=== PATIENT | female | born 1990 | race American Indian/Alaskan Native ===

== ENCOUNTER 2018-12-06 14:02 | Emergency (ER) | payer SELFPAY ==
[2018-12-06 14:30] VITALS: BP 145/94
--- NOTE | 2018-12-06 14:31 | Emergency Department Report ---
Chief Complaint: Upper Respiratory Infection Stated Complaint: CHEST PAIN/SOB Time Seen by Provider: 12/06/18 14:28 - HPI History of Present Illness: pt presents with a cough that began two days ago has chest discomfort with coughing (+) sob (+) rhinorrhea no fever no sick contacts (+) seasonal allergies, has not taken anything no PMHx no daily basis + smoker + marijuana non drinker MSE screening note: Focused history and physical exam performed. Due to findings the following was ordered: CXR pt signed consent form for radiology ED Disposition for MSE Condition: Stable
--- NOTE | 2018-12-06 15:30 | XRay Report ---
ROUTINE CHEST, TWO VIEWS: HISTORY: Cough. The trachea, heart, mediastinal contour, lung orr and bony thorax are unremarkable. IMPRESSION: Unremarkable chest x-ray.
--- NOTE | 2018-12-06 17:50 | Emergency Department Report ---
Minor Respiratory - HPI Chief Complaint: Upper Respiratory Infection Stated Complaint: CHEST PAIN/SOB Time Seen by Provider: 12/06/18 14:28 Duration: 2 Days Pain Location: Nose, Chest Severity: moderate Minor Respiratory: Yes Rhinorrhea, Yes Able to Tolerate Fluids, Yes Cough, Yes Chest Pain, No Sore Throat, No Ear Pain, No Sick Contacts, No Hemoptysis, No Shortness of Breath, No Fever Other History: This is an 28-year-old -[place] female who presents with cough, congestion, and chest discomfort for 2 days. Patient states she is cu rrently taking DayQuil with minimal improvement of symptoms. She denies recent travel, sick contacts, nausea, vomiting, diarrhea, fever, chills, and myalgia. ED Review of Systems ROS: Stated complaint: CHEST PAIN/SOB Other details as noted in HPI Constitutional: denies: chills, fever ENT: congestion. denies: ear pain, throat pain Respiratory: cough. denies: shortness of breath, wheezing Cardiovascular: denies: chest pain, palpitations Gastrointestinal: denies: abdominal pain, nausea, diarrhea Musculoskeletal: denies: back pain, joint swelling, arthralgia, myalgia Skin: denies: rash, lesions Neurological: denies: headache, weakness, paresthesias Psychiatric: denies: anxiety, depression ED Past Medical Hx - Past Medical History Previous Medical History?: No - Surgical History Additional Surgical History: head - Social History Smoking Status: Current Every Day Smoker Substance Use Type: Marijuana - Medications Home Medications: Home Medications Medication Instructions Recorded Confirmed Last Taken Type Benzonatate [Tessalon Perles] 100 mg PO Q8HR PRN #30 capsule 12/06/18 Unknown Rx Cetirizine HCl [Zyrtec] 10 mg PO DAILY #30 tablet 12/06/18 Unknown Rx Fluticasone [Flonase] 1 spray NS QDAY #1 bottle 12/06/18 Unknown Rx Minor Respiratory Exam - Exam General: Vital signs noted. No distress. Alert and acting appropriately. HEENT: Yes Pharyngeal Erythema (erythematous posterior pharynx, uvula midline), Yes Moist Mucous Membranes, Yes Rhinorrhea (turbinates mildly congested with clear discharge), No Pharyngeal Exudates, No Conjuctival Injection, No Frontal Tenderness, No Maxillary Tenderness Ear: Neither TM Bulge, Neither TM Erythema, Neither EAC Pain, Neither EAC Discharge Neck: Yes Supple, No Adenopathy Lungs: Yes Good Air Exchange, Yes Cough, No Wheezes, No Ronchi, No Stridor, No Labored Respirations, No Retractions, No Use of Accessory Muscles, No Other Abnormal Lung Sounds Heart: Yes Regular, No Murmur Abdomen: Yes Normal Bowel Sounds, No Tenderness, No Peritoneal Signs Skin: No Rash, No Edema Neurologic: Alert and oriented, no deficits. Musculoskeletal: Unremarkable. ED Course Vital Signs 12/06/18 14:28 Temperature 98.5 F Pulse Rate 58 L Respiratory 18 Rate Blood Pressure 145/94 O2 Sat by Pulse 100 Oximetry ED Medical Decision Making - Radiology Data Radiology results: report reviewed ROUTINE CHEST, TWO VIEWS: HISTORY: Cough. The trachea, heart, mediastinal contour, lung orr and bony thorax are unremarkable. IMPRESSION: Unremarkable chest x-ray. - Medical Decision Making Patient examined by me and stable. No distress noted. Vitals normal. Symptoms are susceptible of viral syndrome. She is instructed to take Tylenol or ibuprofen for aches and pains, to drink a lot of liquids to stay home and rest. Start flonase, Tessalon Perles, cetirizine, and ibuprofen. Discharged home stable. Educated on care for viral syndrome. He was given a note to return to work in 3 days. Follow up with Primary Care Provider in 2-3 days. He will return to the emergency room if he does not get better as discussed. Critical care attestation.: If time is entered above; I have spent that time in minutes in the direct care of this critically ill patient, excluding procedure time. ED Disposition Clinical Impression: Cough in adult, Chest discomfort Upper respiratory infection Qualifiers: URI type: unspecified viral URI Qualified Code(s): J06.9 - Acute upper respiratory infection, unspecified Disposition: DC-01 TO HOME OR SELFCARE Is pt being admited?: No Does the pt Need Aspirin: No Condition: Stable Instructions: Upper Respiratory Infection (ED), Cold Symptoms (ED) Additional Instructions: Symptoms are most likely coming from for infection. These infections typically do not give antibiotics. He is to take ibuprofen every 6 hours alternated with Tylenol every 4 hours pain. You may not feel like eating which is to be expected. Try eating a bland diet as tolerated. Wash hands frequently. F/U with Primary Care Provider. Return to ER if fever, SOB, or difficulty breathing after 48 hours of supportive care. Prescriptions: Fluticasone [Flonase] 1 spray NS QDAY #1 bottle Benzonatate [Tessalon Perles] 100 mg PO Q8HR PRN #30 capsule PRN Reason: Cough Cetirizine HCl [Zyrtec] 10 mg PO DAILY #30 tablet Referrals: MEÑO BILLY MD [Primary Care Provider] - 3-5 Days [facility] [Outside] - 3-5 Days [facility] [Outside] - 3-5 Days Forms: Work/School Release Form(ED) Time of Disposition: 18:10
== END 2018-12-06 18:30 | disposition home or self-care (01) ==
LOC: ED 14:02
DX: J06.9 Acute upper respiratory infection, unspecified (principal); F17.200 Nicotine dependence, unspecified, uncomplicated; F12.10 Cannabis abuse, uncomplicated
CPT/HCPCS: 71046

== ENCOUNTER 2018-12-08 21:32 | Emergency (ER) | payer OTHER ==
[2018-12-08 21:40] VITALS: BP 153/98
--- NOTE | 2018-12-08 21:57 | Emergency Department Report ---
Blank Doc - Documentation Documentation: This is a 28-year-old female that presents with URI symptoms. Stated was here 2 days ago and is requesting for prescription antibiotics. Last visit no antibiotics prescribed. Patient stated symptoms of cough is getting worse. This initial assessment/diagnostic orders/clinical plan/treatment(s) is/are subject to change based on patient's health status, clinical progression and re- assessment by fellow clinical providers in the ED. Further treatment and workup at subsequent clinical providers discretion. Patient/guardians urged not to elope from the ED as their condition may be serious if not clinically assessed and managed. Initial orders include: 1- Patient sent to [facility] for further evaluation and treatment 2- CXR
--- NOTE | 2018-12-08 23:22 | XRay Report ---
PROCEDURE: Chest. TECHNIQUE: PA and lateral views. HISTORY: Cough. COMPARISONS: Chest 12/06/2018. Dictation not available. FINDINGS: The heart and mediastinum appear normal. The lungs are clear and well expanded. There are no pleural effusions. The soft tissues and regional skeleton are unremarkable. IMPRESSION: Normal study. This document is electronically signed by Jeremy Maradiaga MD., Dec 08 2018 11:20:38 PM ET
--- NOTE | 2018-12-09 00:02 | Emergency Department Report ---
- General Chief Complaint: Medical Clearance Stated Complaint: CHEST PAIN/SHORTNESS OF BREATH Time Seen by Provider: 12/08/18 21:48 Source: patient Mode of arrival: Ambulatory Limitations: No Limitations - History of Present Illness Initial Comments: Pt is a 28 yo female who presents to the ED with c/o a cough that began 4 days ago. She has associated congestion and rhinorrhea. She denies any fever, sore throat or ear ache. She was evaluated in the ED 2 days ago and left prior to receiving prescriptions. Pt states she has seasonal allergies and has not been taking anything. She denies any allergies to medications. She is a current every day smoker and endorses marijuana use. - Related Data Previous Rx's Medication Instructions Recorded Last Taken Type Benzonatate [Tessalon Perles] 100 mg PO Q8HR PRN #30 capsule 12/09/18 Unknown Rx Cetirizine HCl [Zyrtec] 10 mg PO DAILY #30 tablet 12/09/18 Unknown Rx Fluticasone [Flonase] 1 spray NS QDAY #1 bottle 12/09/18 Unknown Rx Allergies Allergy/AdvReac Type Severity Reaction Status Date / Time No Known Allergies Allergy Unverified 12/06/18 14:04 ED Review of Systems ROS: Stated complaint: CHEST PAIN/SHORTNESS OF BREATH Other details as noted in HPI Comment: All other systems reviewed and negative ED Past Medical Hx - Past Medical History Previous Medical History?: No - Surgical History Past Surgical History?: Yes Additional Surgical History: head - Social History Smoking Status: Current Every Day Smoker Substance Use Type: Marijuana - Medications Home Medications: Home Medications Medication Instructions Recorded Confirmed Last Taken Type Benzonatate [Tessalon Perles] 100 mg PO Q8HR PRN #30 capsule 12/09/18 Unknown Rx Cetirizine HCl [Zyrtec] 10 mg PO DAILY #30 tablet 12/09/18 Unknown Rx Fluticasone [Flonase] 1 spray NS QDAY #1 bottle 12/09/18 Unknown Rx ED Physical Exam - General Limitations: No Limitations General appearance: alert, in no apparent distress - Head Head exam: Present: atraumatic, normocephalic - Eye Eye exam: Present: normal appearance, PERRL - ENT ENT exam: Present: normal orophraynx, other (pale boggy turbinates bilaterally) - Respiratory Respiratory exam: Present: normal lung sounds bilaterally. Absent: respiratory distress, wheezes, rales, rhonchi, stridor, chest wall tenderness, accessory muscle use, decreased breath sounds, prolonged expiratory - Cardiovascular Cardiovascular Exam: Present: regular rate, normal rhythm, normal heart sounds. Absent: systolic murmur, diastolic murmur, rubs, gallop - Neurological Exam Neurological exam: Present: alert, oriented X3 - Psychiatric Psychiatric exam: Present: normal affect, normal mood - Skin Skin exam: Present: warm, dry, intact ED Course Vital Signs 12/08/18 12/08/18 21:37 21:44 Temperature 98.2 F 98.2 F Pulse Rate 60 61 Respiratory 16 16 Rate Blood Pressure 153/98 153/98 O2 Sat by Pulse 100 100 Oximetry ED Medical Decision Making - Radiology Data Radiology results: report reviewed TECHNIQUE: PA and lateral views. HISTORY: Cough. COMPARISONS: Chest 12/06/2018. Dictation not available. FINDINGS: The heart and mediastinum appear normal. The lungs are clear and well expanded. There are no pleural effusions. The soft tissues and regional skeleton are unremarkable. IMPRESSION: Normal study. This document is electronically signed by Jeremy Maradiaga MD., Dec 08 2018 11:20:38 PM ET - Medical Decision Making Pt is a 28 yo female who presents to the ED with c/o a cough that began 4 days ago. She has associated congestion and rhinorrhea. She denies any fever, sore throat or ear ache. She was evaluated in the ED 2 days ago and left prior to receiving prescriptions. Pt states she has seasonal allergies and has not been taking anything. She denies any allergies to medications. She is a current every day smoker and endorses marijuana use. CXR with no acute process. VSS. represcribed zyrtec, flonase, and tessalon perles. Advised to follow up with a PCP in the next 2-3 days. pt given list of community resources and good rx card. Return to the ED for any new or worsening symptoms. Critical care attestation.: If time is entered above; I have spent that time in minutes in the direct care of this critically ill patient, excluding procedure time. ED Disposition Clinical Impression: Cough in adult Upper respiratory infection Qualifiers: URI type: unspecified URI Qualified Code(s): J06.9 - Acute upper respiratory infection, unspecified Disposition: TO HOME OR SELFCARE Is pt being admited?: No Does the pt Need Aspirin: No Condition: Stable Instructions: Upper Respiratory Infection (ED) Additional Instructions: Please take medication as prescribed. Please follow up with a primary care doctor in the next 2-3 days. Return to the emergency room for any new or worsening symptoms. Prescriptions: Fluticasone [Flonase] 1 spray NS QDAY #1 bottle Benzonatate [Tessalon Perles] 100 mg PO Q8HR PRN #30 capsule PRN Reason: Cough Cetirizine HCl [Zyrtec] 10 mg PO DAILY #30 tablet Referrals: MEÑO BILLY MD [Primary Care Provider] - 2-3 Days Forms: Accompanied Note, Work/School Release Form(ED) Time of Disposition: 00:01 Print Language: MONGOLIAN
== END 2018-12-09 00:10 | disposition home or self-care (01) ==
LOC: ED 21:32
DX: J06.9 Acute upper respiratory infection, unspecified (principal); F17.200 Nicotine dependence, unspecified, uncomplicated; F12.10 Cannabis abuse, uncomplicated
CPT/HCPCS: 71046

== ENCOUNTER 2019-04-20 15:26 | Emergency (ER) | payer OTHER ==
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
[2019-04-20 15:43] VITALS: BP 129/88
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
== END 2019-04-20 18:23 | disposition home or self-care (01) ==
LOC: ED 15:26
DX: M54.5 Low back pain (principal); V89.2XXA Person injured in unspecified motor-vehicle accident, traffic, initial encounter; Y93.89 Activity, other specified; Y92.410 Unspecified street and highway as the place of occurrence of the external cause; Y99.8 Other external cause status
CPT/HCPCS: 72100